=== PATIENT | female | born 1955 | race Caucasian/White ===

== ENCOUNTER 2017-02-06 09:15 | Day surgery (SDC) | payer OTHER ==
[2017-02-05 12:02] VITALS: BMI 32.7
[~2017-02-06] VITALS: Ht 162.6 cm; Wt 87.4 kg
[2017-02-06] VITALS (11 sets, daily range): BP systolic 82–131; BP diastolic 58–79; PULSE 63–75; RESP 9–20; Ht 162.6 cm; Wt 87.4 kg
[2017-02-06] MEDS ORDERED: CROM10DR6 BOTH EYES (11:45)
[2017-02-06] MEDS ORDERED: LANT3I SC (11:45)
[2017-02-06] MEDS ORDERED: METF1000 PO (11:46)
[2017-02-06] MEDS ORDERED: METO-319 PO (11:46)
[2017-02-06] MEDS ORDERED: HYDR25TA6 PO (11:47)
[2017-02-06] MEDS ORDERED: LOSA100T7 PO (11:48)
[2017-02-06] MEDS ORDERED: CEFAZOLIN 1 GM INJ ONE (12:53)
[2017-02-06] MEDS ORDERED: PROPOFOL 20 ML ONE (12:53)
[2017-02-06] MEDS ORDERED: MIDAZOLAM 1 MG/ML 2 ML INJ ONE (12:54)
[2017-02-06] MEDS ORDERED: FENTAnyl 50 MCG/ML VIAL ONE ×2 (12:54→13:08)
[2017-02-06] MEDS ORDERED: PHENYLephrine (100 MCG/ML) 5ML SYG ONE (13:24)
[2017-02-06] MEDS ORDERED: ONDANSETRON 4 MG INJ ONE (13:24)
[2017-02-06] MEDS ORDERED: METOCLOPRAMIDE 10 MG INJ ONE (13:24)
[2017-02-06] MEDS ORDERED: DEXAMETHASONE 4 MG/ML 1 ML INJ ONE (13:25)
--- NOTE | 2017-02-06 13:46 | SIPON ---
Date/Time of Note Date/Time of Note DATE: 02/06/17 TIME: 13:44 Operative Report Preoperative Diagnosis Ductal carcinoma in situ right breast rule out invasive cancer Postoperative Diagnosis Same Operation/Procedure Performed Needle directed right partial mastectomy Surgeon see signature line recycling assistant Dr Waggoner Anesthesia: general Estimated blood loss: 0 - 10 ml's Transfusion Required none Specimen Right breast specimen Grafts/Implants none Complications none SABRINA BRANDON MD Feb 06, 2017 13:46
[2017-02-06] MEDS ORDERED: SUCCINYLCHOLINE CHLORIDE 100 MG/5 ML SYG IV ONE (13:48)
[2017-02-06] MEDS ORDERED: HYDROCODONE/APAP (7.5/325) TAB PO PRN (14:00)
[2017-02-06] MEDS ORDERED: morphine (1 MG/ML) 10ML SYRINGE IV PRN ×2 (14:00)
[2017-02-06] MEDS ORDERED: hydrALAzine 20 MG INJ IV PRN (14:00)
[2017-02-06] MEDS ORDERED: FENTAnyl 50 MCG/ML VIAL IV PRN ×3 (14:00)
[2017-02-06] MEDS ORDERED: ONDANSETRON 4 MG INJ IV PRN (14:00)
[2017-02-06] MEDS ORDERED: DIPHENHYDRAMINE 50 MG INJ IV PRN (14:00)
[2017-02-06] MEDS ORDERED: METOCLOPRAMIDE 10 MG INJ IV PRN (14:00)
[2017-02-06] MEDS ORDERED: MEPERIDINE 25 MG INJ IV PRN (14:00)
[2017-02-06] MEDS ORDERED: OXYCODONE/ACETAMINOPHEN (5/325) TAB PO PRN (14:00)
[2017-02-06] MEDS ORDERED: LABETALOL HCL 20MG INJ IV PRN (14:00)
[2017-02-06] MEDS ORDERED: EPHEDrine SULFATE 50 MG/5 ML SYG IV PRN (14:00)
[2017-02-06] MEDS: morphine (1 MG/ML) 10ML SYRINGE IV PRN ×2 (14:03→14:24)
--- NOTE | 2017-02-06 14:23 | OPR ---
DATE OF OPERATION: 02/06/2017 PREOPERATIVE DIAGNOSIS: Ductal carcinoma in situ, right breast, rule out invasive cancer. POSTOPERATIVE DIAGNOSIS: Ductal carcinoma in situ, right breast, rule out invasive cancer. OPERATION PERFORMED: Right needle-directed partial mastectomy. ANESTHESIA: General. ANESTHESIOLOGIST: Dr. Diaz SURGEON: Raf Felix MD MANHOLE BUILDER: Dr. Winston Dickerson. INDICATIONS FOR PROCEDURE: The patient is a 62-year-old female who underwent surveillance mammograp hy and was found to have suspicious microcalcifications of the right breast. Subsequent core biopsy confirmed ductal carcinoma in situ and full excision was recommended. The patient consented and wa s scheduled for surgery. DESCRIPTION OF PROCEDURE: On the morning of surgery, the patient presented to [facility] where she underwent localization of the lesion performed by attending radiol ogist, Dr. Chela Gtz. Subsequently, she was brought to the operating theater, placed under general anesthesia. The right breast and axillary region was prepped and draped in the usual sterile fashi on. A curvilinear incision was made in the upper outer quadrant of the right breast in the region o f the previously placed localization wire. Subcutaneous tissue was dissected with cautery. Skin ed ges were then elevated with skin hooks and wide circumferential dissection of the tissue associated with the wire then took place, taking great care to ensure adequate margin. Specimen was then eleva johann, transected, oriented, and sent for radiographic confirmation of capture. Capture was confirmed . Specimen was then sent for permanent pathologic analysis. The wound was irrigated. Minimal blee ding was controlled with cautery. The skin was then reapproximated with a 4-0 Vicryl suture in subc uticular fashion. Benzoin and Steri-Strips were then applied. The patient tolerated procedure well . ESTIMATED BLOOD LOSS: 10 mL. COMPLICATIONS: There were no complications. DISPOSITION: The patient was transported in stable condition to the recovery room. Dictated By: RAF FELIX MD TL/ELSA Conf#: [id number] DID#: [id number] CC: WINSTON DICKERSON MD;*EndCC*
== END 2017-02-06 16:07 | disposition home or self-care (01) ==
LOC: SDS 09:15
PROVIDERS: ATTEND Surgery Surgical Oncology
DX: D05.11 Intraductal carcinoma in situ of right breast (principal); E11.9 Type 2 diabetes mellitus without complications
CPT/HCPCS: 19301; 82962; J0690; J1100; J2250; J2270; J2370; J2405; J2765; J3010; Z7512; Z7610; 88307

== ENCOUNTER 2017-03-20 17:50 | Emergency (ER) | payer SELFPAY ==
[~2017-03-20 17:50] MED LIST: CROM10DR6 BOTH EYES; HYDR25TA6 PO; LANT3I SC; LOSA100T7 PO; METF1000 PO; METO-319 PO
== END 2017-03-21 01:24 | disposition left against medical advice (07) ==
LOC: E/R 17:50
DX: Z53.21 Procedure and treatment not carried out due to patient leaving prior to being seen by health care provider (principal)